=== PATIENT | female | born 1995 | race Caucasian/White ===

== ENCOUNTER 2020-03-23 02:24 | Emergency (ER) | payer OTHER ==
[~2020-03-23] VITALS: Ht 170.2 cm; Wt 145.1 kg
[2020-03-23] MEDS ORDERED: ONDANSETRON HCL 4 MG ORAL DISINTEGRATING TAB ONE (03:09)
--- NOTE | 2020-03-23 03:12 | NUR ---
PT UP TO RESTROOM
[2020-03-23] MEDS ORDERED: ONDANSETRON HCL 4 MG ORAL DISINTEGRATING TAB PO ONE (03:15)
[2020-03-23] MEDS ORDERED: DONNATAL/LIDOCAINE/MAALOX 30 ML SUSP PO ONE (03:45)
[2020-03-23] MEDS ORDERED: BELLADONNA ALK/PHENOBARBITAL 5 ML UDC ONE (03:46)
[2020-03-23] MEDS ORDERED: LIDOCAINE VISC 2% SOLN 15 ML UDC ONE (03:46)
[2020-03-23] MEDS ORDERED: MAGNESIUM/ALUMINUM/SIMETHICONE 30 ML UDC ONE (03:46)
[2020-03-23 04:09] VITALS: BP 149/84
--- NOTE | 2020-03-23 04:17 | Emergency Department Note ---
History of Present Illnes History of Present Illness Chief Complaint: Abdominal Complaints History of Present Illness This is a 24 year old female who presents this morning with mid epigastric abdominal pain. She states the pain woke her up from sleep at approximately 1:30 AM. She describes it as a cramping pain. She's had similar pains last 2 nights that woke over from sleep around 3 AM. The previous episodes she took TUMS which relieve the symptoms and she was able to go back to sleep. His evening, however, she did not take TUMS or any other [id number] remedy due to the symptoms being worse and her insisting that she be "checked out". She has some nausea, but no vomiting. He has diarrhea which he describes as "loose and chunky" for about 3 days. There's been no melena or hematochezia. She has irregular menstrual periods and has currently had vaginal bleeding since mid January. She has an appointment with her [facility] in approximately 8 hours. Denies any fever or chills. There's been no dysuria frequency, or urgency. She is unable to determine if she's had any hematuria due to her vaginal bleeding. Her last meal was at approximate 6 PM and was Ramen noodles. Prior to 2 nights ago she's had no previous episodes. No sick contacts, no resent antibiotics, no recent camping, and does not have well water. She's had no cough, shortness of breath, sore throat, runny nose, difficulty with taste or smell, or other COVID-like symptoms. Historian: Patient Arrival Mode: Car Education Spec Required: No Onset (how long ago): day(s) Radiation: Reports non-radiation Onset quality: sudden Duration (how long): day(s) Chronicity: new Context: Denies trauma/injury Relieving factors: other (Tums) Associated symptoms: Reports loss of appetite; Denies chest pain, Denies cough, Denies headaches, Denies malaise, Denies rash, Denies shortness of breath Treatments prior to arrival: none Past Medical/Family History Physician Review I have reviewed the patient's past medical and family history. Any updates have been documented here. Past Medical History Recent Fever: No Clinical Suspicion of Infectio: No New/Unexplained Change in Ment: No Other Medical History: ADHD Past Surgical History: None Social History Smoking Cessation: Never Smoker Alcohol Use: Occasional Any Illegal Drug Use: No Physically hurt or threatened: No Other Any Pre-Existing Lines (PICC,: No Review of Systems Review of Systems Constitutional: Denies chills, Denies diaphoresis, Denies fever ( ) EENTM: Reports no symptoms Cardiovascular: Reports no symptoms Respiratory: Reports no symptoms Gastrointestinal: Reports abdominal pain; Denies constipation, Denies diarrhea, Denies nausea, Denies vomiting Genitourinary: Reports no symptoms Musculoskeletal: Reports no symptoms Integumentary: Reports no symptoms Neurological: Reports no symptoms Psychological: Reports no symptoms Endocrine: Reports increased thirst, Reports increased urination; Denies intolerance to cold, Denies intolerance to heat Physical Exam Related Data Allergies: Coded Allergies: No Known Drug Allergies (Verified Allergy, Unknown, 03/23/20) Triage Vital Signs Vital Signs Date Time Temp Pulse Resp B/P (MAP) Pulse Ox O2 Delivery O2 Flow Rate FiO2 03/23/20 02:27 97.6 109 18 162/91 100 Room Air Physical Exam CONSTITUTIONAL Constitutional: Present well-developed, Present well-nourished HENT HENT: Present normocephalic, Present atraumatic, Present oropharynx clear/moist, Present nose normal HENT L/R: Present left ext ear normal, Present right ext ear normal EYES Eyes: Reports PERRL, Reports conjunctivae normal NECK Neck: Present ROM normal PULMONARY Pulmonary: Present effort normal, Present breath sounds normal CARDIOVASCULAR Cardiovascular: Present regular rhythm, Present heart sounds normal, Present capillary refill normal, Present normal rate GASTROINTESTINAL Abdominal: Present soft, Present nontender, Present bowel sounds normal, Pres ent tender (mild mid epigastric), Present other (No RUQ tend, No Lloyd's, No psoas, No illiac, no pulsitile mass, no browning-mckinney sign.); Absent guarding, Absent mass, Absent rebound, Absent hernia, Absent left CVA tenderness, Absent right CVA tenderness GENITOURINARY SKIN Skin: Present warm, Present dry MUSCULOSKELETAL Musculoskeletal: Present ROM normal NEUROLOGICAL Neurological: Present alert, Present oriented x 3, Present no gross motor or sensory deficits PSYCHOLOGICAL Psychological: Present mood/affect normal, Present judgement normal Results Laboratory Lab results reviewed: Yes Laboratory comments Glu 113. Glu neg, francesca small, ket neg, SG >=1.30, blood mod, pro neg, nit neg, maikol neg Assessment & Plan Medical Decision Making MDM Checked blood sugar (113) due to polyuria and poly dipsia on ROS. Differential includes but is not limited to: Pancreatitis, cholecystitis, cholelithiasis, GERD, gastritis, ACS, AAA, bowel obstruction, constipation. Patient has no right upper quadrant pain, tenderness, or Lloyd's sign to suggest gallbladder cause. There is no chest pain in a 24-year-old with no risk factors for heart disease. Patient has a non-surgical abdominal exam with no pulsatile mass. Expect GERD as pain is worse with laying flat, per see got better with antacids, and this morning relief with GI cocktail. Patient was given strict return precautions and will promptly follow up with PCP. Reassessment Reassessment 0330 Nausea relieved with zofran. 0400: abd pain relieved with GI cocktail. Assessment & Plan Final Impression: (1) Gastritis Depart Disposition: HOME, SELF-CARE Last Vital Signs Date Time Temp Pulse Resp B/P (MAP) Pulse Ox O2 Delivery O2 Flow Rate FiO2 03/23/20 02:27 97.6 109 18 162/91 100 Room Air Medications in the ED Ondansetron HCl 4 mg STK-MED ONCE .ROUTE ; Start 03/23/20 at 03:09; Stop 03/23/20 at 03:03; Status DC GUERA BURCIAGA MD Mar 23, 2020 03:36
== END 2020-03-23 04:08 | disposition home or self-care (01) ==
LOC: FSED 03:20
DX: R10.13 Epigastric pain (principal); K29.70 Gastritis, unspecified, without bleeding; F90.9 Attention-deficit hyperactivity disorder, unspecified type
CPT/HCPCS: 36415; 81003; 81025; 82948; 99283; Q0162